=== PATIENT | female | born 1985 | race Caucasian/White ===

== ENCOUNTER → 2017-03-12 | Outpatient (CLI) | payer OTHER ==
[2017-03-13 04:09] LABS: HCV ANTIBODY <0.1 s/co ratio (0.0-0.9); HEP B SURFACE ABDY Reactive (.)
== END | disposition home or self-care (01) ==
LOC: LAB 14:22
PROVIDERS: ATTEND Dentist Oral and Maxillofacial Surgery
DX: Z04.2 Encounter for examination and observation following work accident (principal)
CPT/HCPCS: 36415; 86701; 86702; 86703; 86706; 86803; 87535

== ENCOUNTER → 2017-08-25 | Outpatient (CLI) | payer BC, OTHER ==
--- NOTE | 2017-08-25 13:20 | RAD ---
Thyroid ultrasound, 08/25/2017: History: Hyperthyroidism air loss, fatigue The right lobe of the gland measures 5.3 x 1.8 x 1.7 cm while the left lobe of the gland measures 5.1 x 1.7 x 1.6 cm. The thyroid echo pattern is quite heterogeneous. The isthmus demonstrates generalized decreased echogenicity relative to the remainder of the gland. The remainder of both lobes are heterogeneous. There is a 10 x 7 x 7 mm oval-shaped hypoechoic nodule in the medial aspect of the lower pole of the right lobe of the gland. Some of its margins are smooth while others cannot be clearly from other hypoechoic areas in the right lobe and isthmus. No calcifications are seen in this nodule or other portions of the gland. IMPRESSION: 1. Markedly heterogeneous, hypervascular thyroid gland suggesting thyroiditis. 2. Small nonspecific nodule in the right lobe.
== END | disposition home or self-care (01) ==
LOC: US 07:34
PROVIDERS: ATTEND Physician Assistant Medical
DX: E05.90 Thyrotoxicosis, unspecified without thyrotoxic crisis or storm (principal); E04.1 Nontoxic single thyroid nodule
CPT/HCPCS: 76536

== ENCOUNTER 2018-02-19 06:22 | Emergency (ER) | payer BC ==
[~2018-02-19] VITALS: Ht 172.7 cm; Wt 90.7 kg
[2018-02-19 06:27] VITALS: BP 148/81
--- NOTE | 2018-02-19 06:47 | ED.ADGEN ---
Past History Past Medical History: Other Past Surgical History: No Surgical History Additional Smoking Information: 05/26 PPD Alcohol Use: None Drug Use: None Adult General Chief Complaint Chief Complaint Right foot pain HPI HPI Patient is a 32 year old female who presents with left foot pain. She had stumbled down the stairs last night and now complains of pain at the base of her left great toe on the dorsal surface. She states that she hyperflexed the great toe. She denies any other injuries. Pain persists despite NSAIDs. Worse with ambulation. Review of Systems Review of Systems All other systems were reviewed and found to be within normal limits, except as documented in this note. Family History Family History Noncontributory Allergies Allergies Allergies Coded Allergies Type Severity Reaction Last Updated Verified sulfamethoxazole Allergy Severe 02/19/18 Yes trimethoprim Allergy Severe 02/19/18 Yes Physical Exam Physical Exam GENERAL: Awake, alert, no acute distress HEAD/EYES: Normocephalic, EOMI ENT Airway patent, mucous membranes moist NECK: Supple, no meningismus, no swelling RESP: No respiratory distress, symmetrical expansion CV: Normal peripheral perfusion ABD/GI: Non distended SKIN: Warm, dry EXT: Tenderness over the base of the left great toe, pain reproduced with attempts at extension of the great toe against resistance, ankle nontender, the rest the leg nontender, gait mildly antalgic NEURO: Normal motor observed PSYCH: Cooperative, appropriate affect Current Patient Data Vital Signs Vital Signs Date Time Temp Pulse Resp B/P (MAP) Pulse Ox O2 Delivery O2 Flow Rate FiO2 02/19/18 06:27 98.7 95 20 98 Room Air EKG EKG [] Radiology/Procedures Radiology/Procedures []PATIENT: OLI JACOME MACCOUNT: [id number]#: [id number] : 1985 LOCATION: ER AGE: 32 SEX: F EXAM STATUS: REG ER ORD. PHYSICIAN: DANIEL DIGGS DO REASON: proximal great toe pain, forced flexion injury PROCEDURE: FOOT LEFT 3V Indication:INJURY LAST NIGHT FALLING DOWN STAIRS CALLING A FORCED FLEXION INJURY OF PROXIMAL GREAT LEFT TOE. TECHNIQUE: 3 views of the left foot COMPARISON:None FINDINGS/ impression: There is a nondisplaced oblique fracture through the proximal phalanx of the first toe with extension to the articular surface at the interphalangeal joint. No dislocation. No soft tissue abnormality. No arthritic changes. Electronically signed by: Bud Lim DO (02/19/2018 6:51 AM) [facility] DICTATED AND SIGNED BY: BUD LIM DO DATE: 02/19/18 0649 CC: DANIEL DIGSG DO; ZACHARY ROSAS ~ Impressions: Proximal phalanx fracture of the left great toe with extensor hallucis longus tendinopathy and possible tear Course & Med Decision Making Course & Med Decision Making Because I suspect at least partial tear of the extensor hallucis longus tendon, I have splinted the left foot with a posterior short leg splint in dorsiflexion. Splint applied by myself with assistance from Skylar WATSON. Patient tolerated this well. Given crutches and orthopaedic surgeon followup. Final Impression Final Impression Proximal phalanx fracture of the left great toe with extensor hallucis longus tendinopathy and possible tear Dragshari Disclaimer Dragon Disclaimer This electronic medical record was generated, in whole or in part, using a voice recognition dictation system. DANIEL DIGGS DO Feb 19, 2018 06:47
--- NOTE | 2018-02-19 06:55 | RAD ---
Indication:INJURY LAST NIGHT FALLING DOWN STAIRS CALLING A FORCED FLEXION INJURY OF PROXIMAL GREAT LEFT TOE. TECHNIQUE: 3 views of the left foot COMPARISON:None FINDINGS/ impression: There is a nondisplaced oblique fracture through the proximal phalanx of the first toe with extension to the articular surface at the interphalangeal joint. No dislocation. No soft tissue abnormality. No arthritic changes. Electronically signed by: Bud Lim DO (02/19/2018 6:51 AM) [facility]
[2018-02-19] MEDS ORDERED: HYDR-971 PO ×2 (07:18→07:25)
== END 2018-02-19 07:27 | disposition home or self-care (01) ==
LOC: ER 06:22
DX: S92.415A Nondisplaced fracture of proximal phalanx of left great toe, initial encounter for closed fracture (principal); M77.52 Other enthesopathy of left foot and ankle; F17.210 Nicotine dependence, cigarettes, uncomplicated; Z88.1 Allergy status to other antibiotic agents; Z88.2 Allergy status to sulfonamides; W01.0XXA Fall on same level from slipping, tripping and stumbling without subsequent striking against object, initial encounter; Y93.89 Activity, other specified; Y92.89 Other specified places as the place of occurrence of the external cause; Y99.8 Other external cause status
CPT/HCPCS: 29515; 73630; 99284